=== PATIENT | female | born 1940 | race Caucasian/White ===

== ENCOUNTER 2018-07-28 07:50 | Inpatient (IN) | payer OTHER, BC ==
[~2018-07-28 07:50] MED LIST: TRANEXAMIC ACID 1,000 MG in NS 100 ML IV ONE; morphINE PF 0.2 MG in SYRINGE INTRATHECAL 1 SYR IT ONE
[2018-07-28] MEDS ORDERED: BUPIVACAINE 0.25% 10 ML SDV ONE (08:07)
[2018-07-28] MEDS ORDERED: CHLORHEXIDINE GLUC HIBICLENS 118 ML BTL TP ONE (08:07)
[2018-07-28] MEDS ORDERED: fentaNYL 50 MCG in SYRINGE INTRATHECAL 1 SYR IT ONE (08:07)
[2018-07-28] MEDS ORDERED: GABAPENTIN 300 MG CAP PO ONE (08:07)
[2018-07-28] MEDS ORDERED: ACETAMINOPHEN 500 MG TAB PO ONE (08:07)
[2018-07-28] MEDS ORDERED: ceFAZolin 2 GM/DEXTROSE 100 ML IV ONE (08:07)
[2018-07-28] MEDS ORDERED: THROMBIN (BOVINE) 5,000 UNIT VIAL TP ONE (08:08)
[2018-07-28] MEDS ORDERED: BUPIVACAINE/EPI 0.25% 30 ML SDV ONE (08:08)
[2018-07-28] MEDS ORDERED: BACITRACIN 50,000 UNITS/10 ML SYR IRR ONE (08:08)
[2018-07-28] MEDS ORDERED: LR 1,000 ML IV ONE (08:09)
[2018-07-28 08:49] LABS: PLATELET COUNT 459 10^3/uL (150-400)
[2018-07-28 09:03] LABS: INR 1.04 (0.83-1.16); PROTIME(PATIENT) 13.8 SEC (12.0-15.0)
[2018-07-28] MEDS ORDERED: MIDAZOLAM 2 MG/2 ML VIAL IVP ONE (10:11)
--- NOTE | 2018-07-28 10:11 | PDHPUP ---
History & Physical Update H&P update statement: This history and physical update is based on an assessment of the patient which was completed after admission or registration (within 24 hours), but prior to the surgery/procedure. H&P update: H&P reviewed & patient examined, no change in patient's condition since H&P completed
[2018-07-28] MEDS ORDERED: MIDAZOLAM 2 MG/2 ML VIAL ONE (10:12)
--- NOTE | 2018-07-28 10:12 | PDANEPAE ---
ANE Past Medical History - Cardiovascular History Hx Hypertension: No Hx Arrhythmias: Yes Hx Chest Pain: No Hx Coronary Artery / Peripheral Vascular Disease: No Hx CHF / Valvular Disease: No Hx Palpitations: No Cardiovascular History Comment: SVT BEGAN AGE 50 VERY LITTLE TROUBLE WITH IT - Pulmonary History Hx COPD: No Hx Asthma/Reactive Airway Disease: No Hx Recent Upper Respiratory Infection: No Hx Oxygen in Use at Home: No Hx Sleep Apnea: No Sleep Apnea Screening Result - Last Documented: Negative - Neurologic History Hx Cerebrovascular Accident: No Hx Seizures: No Hx Dementia: No Neurologic History Comment: ? 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 LAST 4 YRS AGO - Endocrine History Hx Diabetes: No Endocrine History Comment: INCREASING HGA1C. THYROID NODULES - Renal History Hx Renal Disorders: No - Liver History Hx Hepatic Disorders: No - Neurological & Psychiatric Hx Hx Neurological and Psychiatric Disorders: No - Cancer History Hx Cancer: No - Congenital Disorder History Hx Congenital Disorders: No - GI History Hx Gastrointestinal Disorders: Yes Gastrointestinal History Comment: HX ULCERS. REFLUX - Other Health History Other Health History: THROMBOCYTOSIS. DX MULTIPLE SCLEROSIS. DDD BACK ISSUES MANY YRS. GOT WORSE AFTER HIP SURGERY 09/2017. RT LEG WEAKNESS - Chronic Pain History Chronic Pain: Yes (RT HIP AND LEG) - Surgical History Prior Surgeries: MAYCOL TOTAL HIP. MAYCOL CARPAL TUNNEL. LT BREAST BX. HYSTERECTOMY. RT OVARIAN CYSTECTOMY. MAYCOL CATARACT ANE Review of Systems Review of Systems: - Exercise capacity METS (RN): 4 METS ANE Patient History - Allergies Allergies/Adverse Reactions: levofloxacin [From Levaquin] Allergy (Verified 07/28/18 08:14) oxycodone [From Percocet] Allergy (Verified 07/17/18 16:04) LOSS OF BLADDER CONTROL Penicillins Allergy (Verified 07/17/18 15:03) Rash strawberry Allergy (Verified 07/17/18 15:04) ORAL SWELLING/RASH N-SAIDS Allergy (Uncoded 07/17/18 15:11) - Home Medications Home Medications: Aspirin 81mg (*) DAILY 07/17/18 [Last Taken 07/21/18] Herbals/Supplements -Info Only DAILY 07/17/18 [Last Taken 07/21/18] Hydroxyurea TUTHSA 07/17/18 [Last Taken 07/21/18] LORAZEPAM PRN 07/17/18 [Last Taken Unknown] Nizatidine BID 07/17/18 [Last Taken 07/28/18] Ocuvite DAILY 07/17/18 [Last Taken 07/21/18] SUMAtriptan PRN 07/17/18 [Last Taken Unknown] Toprol Xl 25 mg (*) DAILY 07/17/18 [Last Taken 07/28/18] - NPO status NPO Since - Liquids (Date): 07/28/18 NPO Since - Liquids (Time): 06:30 NPO Since - Solids (Date): 07/27/18 NPO Since - Solids (Time): 18:00 - Smoking Hx Smoking Status: Former smoker ANE Labs/Vital Signs - Labs Result Diagrams: 07/28/18 08:39 - Vital Signs Blood Pressure: 133/69 Heart Rate: 68 Respiratory Rate: 16 O2 Sat (%): 100 Height: 165.1 cm Weight: 63.503 kg ANE Physical Exam - Airway Neck exam: decreased ROM Mallampati Score: Class 1 Mouth exam: normal dental/mouth exam - Pulmonary Pulmonary: no respiratory distress - Cardiovascular Cardiovascular: regular rate and rhythym - ASA Status ASA Status: II ANE Anesthesia Plan Anesthesia Plan: general endotracheal anesthesia
[2018-07-28] MEDS ORDERED: fentaNYL 250 MCG/5 ML INJ ONE (10:24)
[2018-07-28] MEDS ORDERED: PROPOFOL 200 MG/20 ML VIAL ONE ×2 (10:24→10:57)
[2018-07-28] MEDS ORDERED: LIDOCAINE 2% 5 ML SDV ONE (10:56)
[2018-07-28] MEDS ORDERED: DEXAMETHASONE 4 MG/ML VIAL ONE (10:56)
[2018-07-28] MEDS ORDERED: ROCURONIUM 50 MG/5 ML VIAL ONE (10:56)
[2018-07-28] MEDS ORDERED: ONDANSETRON 4 MG/2 ML VIAL ONE (10:56)
[2018-07-28] MEDS ORDERED: ePHEDrine SULFATE 25 MG/5 ML SYR ONE (10:56)
[2018-07-28] MEDS ORDERED: REMIFENTANIL HCL 1 MG VIAL ONE (10:57)
[2018-07-28] MEDS ORDERED: PHENYLEPHRINE 10 MG/ML SDV ONE (11:28)
[2018-07-28] MEDS ORDERED: PHENYLEPHRINE HCL 100 MCG/ML SYR ONE (11:28)
[2018-07-28] MEDS ORDERED: LABETALOL HCL 20 MG/4 ML INJ IVP PRN (13:12)
[2018-07-28] MEDS ORDERED: PROMETHAZINE HCL 25 MG/ML INJ IVP PRN ×2 (13:12→17:53)
[2018-07-28] MEDS ORDERED: fentaNYL 100 MCG/2 ML INJ IVP PRN (13:12)
[2018-07-28] MEDS ORDERED: NALOXONE HCL 0.4 MG/ML INJ IVP PRN (13:12)
--- NOTE | 2018-07-28 13:14 | POSTANESTH ---
Post Anesthetic Evaluation Cardiovascular Status: Normal, Stable Respiratory Status: Normal, Stable Level of Consciousness/Mental Status: Mildly Sleepy, Arousable Pain Control: Adequate, Prn Tx Ordered Nausea/Vomiting Control: Adequate, Prn Tx Ordered Complications Possibly Related to Anesthesia: None Noted
--- NOTE | 2018-07-28 13:16 | SOAPPROG ---
SOAP Progress Note Assessment/Plan: POST OP CHECK: Assessment: Doing well s/p L4/5 TLIF Plan: CPM in PACU REMBERTO to bulb suction transfer to floor per protocol 07/28/18 13:13 07/28/18 13:14 07/28/18 13:15 Subjective: awake, alert, comfortable Objective: Vital Signs Temp Pulse Resp BP Pulse Ox 36.6 C 68 16 133/69 H 100 07/28/18 08:28 07/28/18 10:12 07/28/18 10:12 07/28/18 10:12 07/28/18 10:12 Laboratory Results 07/28/18 08:39 PT 13.8 SEC (12.0-15.0) 07/28/18 08:39 INR 1.04 (0.83-1.16) 07/28/18 08:39 Neuro: MORALES, sens +LT follows commands speech clear PERRLA, EOMI Vitals: HR;86 BP:111/65 O2: 100% face mask ICD10 Worksheet Patient Problems: Problems Problem Status Onset Spondylolisthesis at L4-L5 level Acute - ICD10 Problem Qualifiers (1) Spondylolisthesis at L4-L5 level
[2018-07-28] MEDS ORDERED: LACTULOSE 20 GM/30 ML UDCUP PO PRN (13:17)
[2018-07-28] MEDS ORDERED: diphenhydrAMINE 25 MG CAP PO PRN (13:17)
[2018-07-28] MEDS ORDERED: BISACODYL 10 MG SUPP PR PRN (13:17)
[2018-07-28] MEDS ORDERED: ONDANSETRON 4 MG/2 ML VIAL IVP PRN (13:17)
[2018-07-28] MEDS ORDERED: MAGNESIUM HYDROXIDE 30 ML UDCUP PO PRN (13:17)
--- NOTE | 2018-07-28 13:17 | POSTOPPROG ---
Post Op Note Date of Operation: 07/28/18 Surgeon: Goran Wang Door To Door Selling Agent: JOAQUINA Pichardo Anesthesiologist: Michael Bland MD Anesthesia: GET(General Endotracheal) Pre-op Diagnosis: L4/5 DJD Spondylolisthesis Post-op Diagnosis: same Indication: Low back and right leg pain Procedure: L4/5 TLIF Findings: Severe stenosis, DJD Inf/Abcess present in the surg proc area at time of surgery?: No EBL: 100-500 Complications: None Drains: Maxim Villegas (to bul suction) Specimen(s): none
[2018-07-28] MEDS ORDERED: HYDROmorphONE/DILAUDID 4 MG TAB PO PRN (13:24)
[2018-07-28] MEDS ORDERED: NS 1,000 ML IV SCH (13:30)
--- NOTE | 2018-07-28 14:48 | PDMN ---
Medical Necessity Medical [place] [facility] [place] Lumbar Fusion: 78 yo s/p L4-5 TLIF lum james fusion w / LINDA warren IP only
[2018-07-28] MEDS: ONDANSETRON DISINTEGRATING 4 MG TAB PO PRN ×2 (15:36→16:30)
[2018-07-28] MEDS: GABAPENTIN 300 MG CAP PO SCH ×2 (15:53→21:48)
[2018-07-28] MEDS: ACETAMINOPHEN 500 MG TAB PO SCH ×2 (15:53→21:48)
[2018-07-28] MEDS: POLYETHYLENE GLYCOL 3350 17 GM PKT PO SCH ×2 (16:32→21:49)
[2018-07-28] MEDS: ceFAZolin 2 GM/DEXTROSE 100 ML IV SCH (18:20)
--- NOTE | 2018-07-28 21:41 | GOP ---
DATE OF OPERATION: 07/28/2018 SURGEON: Goran Wang MD NEUROSURGEON: Goran Wang MD FUNCTIONAL MENTAL DISABILITY TEACHER: JOAQUINA Pierce ANESTHESIA: General endotracheal. PREOPERATIVE DIAGNOSIS: Unstable L4-5 grade 1 to 2 spondylolisthesis with critical spinal stenosis. Intractable back pain and right lower extremity radiculopathy/weakness. High risk surgical candidat e given age of 70 years, comorbidities, and required surgical intervention. POSTOPERATIVE DIAGNOSIS: Unstable L4-5 grade 1 to 2 spondylolisthesis with critical spinal stenosis. Intractable back pain and right lower extremity radiculopathy/weakness. High risk surgical sebastian te given age of 70 years, comorbidities, and required surgical intervention. PROCEDURE PERFORMED: Right-sided L L4-5 far lateral transpedicular decompression with L4-5 posterior nonsegmental (pedicle screw and axle device) fixation and posterolateral fusion with local autograft and bone morphogenic protein. L4-5 posterior/transforaminal lumbar interbody fusion with 2 structur al PEEK interbody spacers, local autograft and bone morphogenic protein. Use of intraoperative micro scopy, fluoroscopy, and computer volumetric stereotactic navigation with intraoperative neurophysiolo gic testing. Injection of intrathecal narcotic analgesics and subcutaneous and intramuscular local a nesthesia for postoperative pain control. FINDINGS: ESTIMATED BLOOD LOSS: 75 cc. INDICATIONS: The patient is a 78-year-old woman with intractable low back pain and right lower extre mity radicular symptoms, especially weakness who has failed to improve with extensive conservative ca re and presents now for surgical decompression and stabilization. DESCRIPTION OF PROCEDURE: After informed consent was obtained, the patient was taken to the operatin g room and placed in the prone position on the Maxim table. The lumbosacral area was prepped and d raped in a sterile fashion. After fluoroscopic localization of the correct levels, the subcutaneous and intramuscular tissues were infiltrated with local anesthesia. A midline linear incision was then created over the L4-5 spinous processes. This was carried down to the fascial layer, which was then incised using monopolar electrocautery and carried in the subperio steal plane along the spinous processes and lamina bilaterally. Intraoperative fluoroscopy was again utilized to verify the correct levels. Following this, the dissection was carried out over the face t joints. The microscope was then brought in and a right-sided far lateral transpedicular decompress ion was performed with complete unroofing of the very large arthritic facet joints. The microscope a nd instruments for angled across the midline and a left-sided central canal decompression was perform ed as well while leaving the spinous processes intact for structural integrity. Following this, the [employer] neuronavigational system was brought in and 3-D reconstructed images obta ined and sent to the [employer] station. Using computer volumetric stereotactic navigation, pedicle scr ews were placed at L4 and L5 bilaterally. Each individual screw was tested neurophysiologically with monopolar electrostimulation and interpretation of the potentials by the surgeon. Rods were then pl aced and secured under distraction, during which time, a complete diskectomy was performed with prepa ration of the endplates and placement of 2 structural PEEK interbody spacers, local autograft and bon e morphogenic protein for an L4-5 posterior/transforaminal lumbar interbody fusion. The screw and ro d system were then placed in a slight amount of compression in order to facilitate bony union and to minimize the potential for posterior graft migration. An axial device was then placed as well because the bone screw interface with the pedicle screws was extremely soft and weak, and I felt that she was at high risk for hardware failure and nonunion. Aft er placement of the axle device, 200 mcg of Duramorph, along with 50 mcg of fentanyl were injected in trathecally at the L3-4 level. The remaining lamina and facet joint on the left side were extensivel y decorticated and the residual local autograft, along with bone morphogenic protein was placed out l aterally for posterolateral fusion at the L4-5 level. A drain was placed. The subcutaneous and intramuscular tissues were re-infiltrated with local anesth esia, and the wound was closed in a layered fashion using interrupted Vicryl sutures, followed by Keon ri-Strips on the skin. After re-verification of good position of the screws, rods, and interbody spa cers and spinous process clamp using biplanar fluoroscopy. COMPLICATIONS: None. DISPOSITION: The patient is currently in the process of being repositioned for extubation. /[id number]/MODL
[2018-07-28] MEDS: FAMOTIDINE 20 MG TAB PO SCH (21:48)
[2018-07-28] MEDS: SENNOSIDES/DOCUSATE SODIUM TAB PO SCH (21:49)
[2018-07-29] MEDS: ceFAZolin 2 GM/DEXTROSE 100 ML IV SCH (02:34)
[2018-07-29] MEDS: ACETAMINOPHEN 500 MG TAB PO SCH ×3 (05:24→22:21)
[2018-07-29] MEDS: GABAPENTIN 300 MG CAP PO SCH ×3 (05:25→20:24)
[2018-07-29 05:33] LABS: PLATELET COUNT 347 10^3/uL (150-400)
--- NOTE | 2018-07-29 07:55 | SOAPPROG ---
MARTHA Progress Note Assessment/Plan: Assessment: Doing well s/p L4/5 TLIF. Had urinary retention overnight requiring straight cath. Plan: PT/OT in LSO REMBERTO to bulb suction Xrays today will start Flomax today Lovenox starts today Subjective: Awake, alert, pain well controlled. Urinary retention overnight she feels her right leg pain is improved Objective: Vital Signs Temp Pulse Resp BP Pulse Ox 36.3 C 55 L 16 88/46 L 100 07/29/18 04:44 07/29/18 04:44 07/29/18 04:44 07/29/18 04:44 07/29/18 04:44 Laboratory Results 07/29/18 04:35 07/29/18 04:35 07/28/18 07/29/18 07/30/18 05:59 05:59 05:59 Intake Total 3590 Output Total 1260 Balance 2330 PT 13.8 SEC (12.0-15.0) 07/28/18 08:39 INR 1.04 (0.83-1.16) 07/28/18 08:39 Neuro: MORALES, sens +Lt Dressing: Dry REMBERTO: 160ml since surgery ICD10 Worksheet Patient Problems: Problems Problem Status Onset Spondylolisthesis at L4-L5 level Acute - ICD10 Problem Qualifiers (1) Spondylolisthesis at L4-L5 level
[2018-07-29] MEDS: FAMOTIDINE 20 MG TAB PO SCH ×2 (08:38→20:24)
[2018-07-29] MEDS: TAMSULOSIN HCL 0.4 MG CAP PO SCH (08:38)
[2018-07-29] MEDS: METHOCARBAMOL 750 MG TAB PO PRN ×3 (08:38→22:22)
[2018-07-29] MEDS: ENOXAPARIN 40 MG/0.4 ML SYR SC SCH (08:38)
[2018-07-29] MEDS: SENNOSIDES/DOCUSATE SODIUM TAB PO SCH ×2 (08:38→20:24)
[2018-07-29] MEDS: POLYETHYLENE GLYCOL 3350 17 GM PKT PO SCH ×3 (08:39→20:23)
--- NOTE | 2018-07-29 10:59 | ASMTCMCOM ---
CM Note CM Note Notes: Pt had planned L4/5 fusion, resides with spouse. PT rec home care, pt amenable. Pt address/phone verified. Pt pre-arranged with [facility] and Nataly will meet with pt today. CM to follow. D/c plan of care: Home with [facility] PT Date Signed: 07/29/2018 10:58 AM Electronically Signed By:BEE Salazar
[2018-07-30] MEDS: METHOCARBAMOL 750 MG TAB PO PRN (05:34)
[2018-07-30] MEDS: ACETAMINOPHEN 500 MG TAB PO SCH (05:34)
[2018-07-30] MEDS: GABAPENTIN 300 MG CAP PO SCH (05:34)
--- NOTE | 2018-07-30 07:27 | SOAPPROG ---
SOAP Progress Note Assessment/Plan: Assessment: 78 yo F POD #2 L4/5 TLIF Plan: stable and doing well post op x-rays look great PT/OT scdt/rei/lovenox for dvt prophylaxis dc home today please call with neuro changes discussed with Dr Romero 07/30/18 07:26 Subjective: back pain improving, no leg pain, no weakness. Objective: Vital Signs Temp Pulse Resp BP Pulse Ox 36.3 C 87 16 115/58 L 91 L 07/29/18 23:12 07/30/18 05:40 07/30/18 05:40 07/30/18 05:40 07/30/18 05:40 Laboratory Results 07/29/18 04:35 07/29/18 04:35 07/29/18 07/30/18 07/31/18 05:59 05:59 05:59 Intake Total 3590 1550 Output Total 1260 2200 Balance 2330 -650 PT 13.8 SEC (12.0-15.0) 07/28/18 08:39 INR 1.04 (0.83-1.16) 07/28/18 08:39 AAOX4, +FC PERRL, EOMI, no facial droop 5/5 + light touch C/D/I ICD10 Worksheet Patient Problems: Problems Problem Status Onset Spondylolisthesis at L4-L5 level Acute
[2018-07-30 07:52] VITALS: BP 94/56
[2018-07-30] MEDS: POLYETHYLENE GLYCOL 3350 17 GM PKT PO SCH (09:00)
[2018-07-30] MEDS: FAMOTIDINE 20 MG TAB PO SCH (09:00)
[2018-07-30] MEDS: SENNOSIDES/DOCUSATE SODIUM TAB PO SCH (09:00)
[2018-07-30] MEDS: TAMSULOSIN HCL 0.4 MG CAP PO SCH (09:01)
[2018-07-30] MEDS: ENOXAPARIN 40 MG/0.4 ML SYR SC SCH (09:03)
--- NOTE | 2018-07-30 10:41 | ASMTLACE ---
LACE Length of stay for Answers: 2 days current admission Acuity / Level of Answers: Yes Care: Did the patient have an inpatient admission? Comorbidities - select Answers: Cerebrovascular disease all that apply (CVA, TIA, aneurysms, vasc ular dementia) Opioid dependence / Chronic pain # of Emergency department Answers: 0 visits in the last 6 months Score: 10 Date Signed: 07/30/2018 10:41 AM Electronically Signed By:Caridad Simmons RN
--- NOTE | 2018-07-30 10:41 | WOCRNPDOC ---
WOCRN Advanced Assessment Note - Skin Integrity Problem, Advanced Assess Left Anterior Lower Leg Pressure Injury Dressing Type: Open to Air Exudate Amount: None Krystin Wound Tissue: Non-blanching, Painful/Tender Wound Bed Color: [place] Site Measurement - Head-to-Toe Length X Width X Depth (cm): 0.3x0.8x0 Pressure Injury Stage: Stage 1, [employer] Engineer Related Pressure Injury Pressure Injury Present on Admit: No Skin Integrity Problem Comment: Patient had KEITH hose on overnight, and reports telling the night staff that they were painful. Wound bed is at distal end of lower leg, just above ankle joint on the anterior surface. KEITH hose removed and left off by hourly shift manager. Skin is intact, but non-blanching. Wound care will not follow. Please reconsult PRN if wound opens.
--- NOTE | 2018-07-30 10:42 | ASMTDCNOTE ---
Case Management Discharge Discharge Order Complete? Answers: Yes Patient to Obtain Answers: Independently Medications Transportation Arranged Answers: Family/Friends Faxed Final Orders Answers: Yes Family Notified Answers: Yes Discharge Comments Notes: Patient will discharge home with her . [facility] to follow. Orders sent. Date Signed: 07/30/2018 10:42 AM Electronically Signed By:Caridad Simmons RN
--- NOTE | 2018-07-30 14:31 | ASDISCHSUM ---
Discharge Information Plan Status:Home with Home Health Medically Cleared to Leave: Discharge Date:07/30/2018 12:52 PM CM D/C Disposition: ADT D/C Disposition:Home, Routine, Self-Care Projected Discharge Date:07/30/2018 11:00 AM Transportation at D/C: Discharge Delay Reason: Follow-Up Date:07/30/2018 11:00 AM Discharge Slot: Final Diagnosis: Placement Information Referral Type:*Home Health Care Services Referral ID:[id number] Provider Name:[facility] ([facility]) Address 1:[address] [address] Address 2: City:[place] Selection Factors: State:[place] Patient Contact Information Contact Name:DENA Relationship: Address: Work Phone: [facility]:[place] Alternate Phone: [facility]/Zip Code:[place] [address] Email: Financial Information Financial Class:Medicare Primary Plan Desc:MEDICARE INPATIENT Primary Plan Number:[id number] Secondary Plan Desc:[employer] [facility] Secondary Plan Number:[id number] Assessment Information LACE LACE Length of stay for Answers: 2 days current admission Acuity / Level of Answers: Yes Care: Did the patient have an inpatient admission? Comorbidities - select Answers: Cerebrovascular disease all that apply (CVA, TIA, aneurysms, vasc ular dementia) Opioid dependence / Chronic pain # of Emergency department Answers: 0 visits in the last 6 months Score: 10 Date Signed: 07/30/2018 10:41 AM Electronically Signed By:Caridad Simmons RN [facility] CM Progress Note CM Note CM Note Notes: Pt had planned L4/5 fusion, resides with spouse. PT rec home care, pt amenable. Pt address/phone verified. Pt pre-arranged with [facility] and Nataly will meet with pt today. CM to follow. D/c plan of care: Home with [facility] PT Date Signed: 07/29/2018 10:58 AM Electronically Signed By:BEE Salazar Case Management Discharge Plan Note Case Management Discharge Discharge Order Complete? Answers: Yes Patient to Obtain Answers: Independently Medications Transportation Arranged Answers: Family/Friends Faxed Final Orders Answers: Yes Family Notified Answers: Yes Discharge Comments Notes: Patient will discharge home with her . [facility] to follow. Orders sent. Date Signed: 07/30/2018 10:42 AM Electronically Signed By:Caridad Simmons RN Intervention Information
--- NOTE | 2018-08-05 09:58 | GDS ---
ADMISSION DIAGNOSIS: L4-5 degenerative joint disease and stenosis. DISCHARGE DIAGNOSIS: L4-5 transforaminal lumbar interbody fusion. HISTORY/PHYSICAL: Please see admission history and physical. COURSE: Patient is a 78-year-old female who presented with low back pain and lower extremity radicul ar symptoms. She was found to have L4-5 degenerative joint disease and stenosis. She was taken to [facility] operating room on 07/28/2018, where she underwent an L4-5 transforaminal lumbar interbody fusion. There were no intraoperative complications, and she was admitted to the floor for observation. On [facility] floor, she was tolerating a regular diet, and her pain was controlled with p.o. pain medications. She was discharged home in stable condition on 07/30/2018. Patient was discharged with lumbar fusio n instructions and recommended she return for a neurosurgical followup appointment in 10-14 days. /[id number]/MODL
== END 2018-07-30 12:52 | disposition home health service (06) | DRG 454 ==
LOC: FSGY 07:50 → F3N 13:18
PROVIDERS: ADMIT Neurological Surgery; ATTEND Neurological Surgery
DX: M43.16 Spondylolisthesis, lumbar region (principal); M54.16 Radiculopathy, lumbar region; M48.061 Spinal stenosis, lumbar region without neurogenic claudication; I47.1 Supraventricular tachycardia; L89.891 Pressure ulcer of other site, stage 1; G35 Multiple sclerosis; Z96.643 Presence of artificial hip joint, bilateral
CPT/HCPCS: 97116-GP; 97161-GP; 97166-GO; 97535-GO; C1713; G8978-GP-CI; G8979-GP-CI; G8980-GP-CI; G8987-GO-CJ; G8988-GO-CI; G8989-GO-CI; J0690; J1100; J1650; J2250; J2274; J2370; J2405; J2550; J2704; J3010